=== PATIENT | female | born 1990 | race Caucasian/White ===

== ENCOUNTER 2016-08-16 15:13 | Emergency (ER) | payer BC, OTHER ==
--- NOTE | 2016-08-16 18:02 | ED CLINICAL REPORT ---
Clinical Report - Physicians/Mid Levels [facility] [address] [place] [address] 08/16/2016 15:17 Patient: ZAYRA BURK Time Seen: 15:30; upon arrival, initial patient contact, initial documentation, patient care assumed. Arrived- By private vehicle. Historian- patient. HISTORY OF PRESENT ILLNESS Chief Complaint: ABDOMINAL PAIN. At its maximum, severity described as severe. When seen in the E.D., severity described as severe. It is described as "pain". No radiation. It is described as located in the right lower quadrant. This started about 1 months ago and is still present and now worse. (today). It was abrupt in onset. The patient has had nausea and vomiting. The vomiting has occurred twice. No loss of appetite or diarrhea. No additional abdominal pain. No recent travel. Similar symptoms previously: Frequently, milder. Recent medical care: Not recently seen/assessed. REVIEW OF SYSTEMS Last normal menstrual period- now. No constipation, black stools, hematemesis, difficulty with urination or pain with urination. No urinary frequency, bloody stools, chest pain or difficulty breathing. Denies current . The patient has had a subjective fever. All systems otherwise negative, except as recorded above. PAST HISTORY See nurses notes. PROBLEMS: Fibromyalgia. Heartburn. --15:33 Prabha Huertas, RMarilynN. ADDITIONAL SURGERIES: Appendectomy. Cholecystectomy. Left shoulder. Right wrist. --15:33 Prabha Huertas, R.N. SOCIAL HISTORY Heavy tobacco smoker. Occasional alcohol use. No drug use. No recent travel. Is a local resident. FAMILY HISTORY Negative. ADDITIONAL NOTES The nursing notes have been reviewed with agreement regarding the chief complaint, HPI, ROS, PMH and patient medications and allergies. PHYSICAL EXAM Vital Signs: 08/16/2016 15:29 BP: 130/92. HR: 82. RR: 18. O2 saturation: 99%. Have been reviewed as normal and appear to be correct. Appearance: Alert. Oriented X3. No acute distress. Eyes: Pupils equal, round and reactive to light. Eyes normal inspection. Neck: Normal inspection. Neck supple. CVS: Normal heart rate and rhythm. Heart sounds normal. Pulses normal. Respiratory: No respiratory distress. Breath sounds normal. Chest nontender. Abdomen: Soft. Moderate tenderness in the right lower quadrant with rebound tenderness present. No guarding or Cunningham's, obturator or psoas sign present. Bowel sounds normal. No organomegaly. No mass. Tenderness present. Back: Normal inspection. Skin: Skin warm and dry. Normal skin color. No rash. Normal skin turgor. Extremities: Extremities exhibit normal ROM. No lower extremity edema. Neuro: Oriented X 3. No motor deficit. No sensory deficit. LABS, X-RAYS, AND EKG Abdominal CT: No acute disease. Laboratory Tests: UA-Culture if indicated: (KETURAH: 08/16/2016 15:27) ( Mscvd 08/16/2016 16:17) Final results Test Result Flag Units (Reference) URINE COLOR LIGHT YELLOW URINE APPEARANCE CLEAR URINE GLUCOSE NEGATIVE (NEGATIVE) URINE BILIRUBIN POSITIVE (NEGATIVE) URINE BILIRUBIN ICTOTEST POSITIVE (NEGATIVE) URINE KETONE NEGATIVE (NEGATIVE) URINE SPECIFIC GRAVITY 1.010 (1.010-1.030) URINE PH 6.0 (5.0-8.0) URINE PROTEIN NEGATIVE (NEGATIVE) URINE UROBILINOGEN 0.2 EU/dL (0.2-1.0) URINE NITRITE NEGATIVE (NEGATIVE) URINE BLOOD NEGATIVE (NEGATIVE) URINE LEUK ESTERASE NEGATIVE (NEGATIVE) URINE RBC NONE SEEN rbc/hpf (0-1) URINE WBC 0-1 wbc/hpf (0-1) URINE EPITHELIAL CELLS 3-5 EPI/hpf (0-5) URINE BACTERIA TRACE (<1+) (NONE SEEN) URINE COMMENT CULT NOT INDICATED URINE CULTURES ARE SET-UP BASED ON THE FOLLOWING CRITERIA:POSITIVE NITRITEPOSITIVE LEUKOCYTE ESTERASEGREATER THAN 10 WHITE BLOOD CELLSMODERATE (2+) OR GREATER BACTERIA Serum Qualitative: (KETURAH: 08/16/2016 15:44) ( MsgRcvd 08/16/2016 16:19) Final results Test Result Flag Units (Reference) , SERUM NEGATIVE CBC w Diff: (KETURAH: 08/16/2016 15:44) ( MsgRcvd 08/16/2016 16:17) Final results Test Result Flag Units (Reference) WHITE BLOOD COUNT 12.3 H K/uL (4.5-11.5) RED BLOOD COUNT 4.78 M/uL (4.00-5.20) HEMOGLOBIN 14.0 gm/dL (12.0-16.0) HEMATOCRIT 41.8 % (36.0-46.0) MEAN CELL VOLUME 87 fL (80-100) MEAN CORPUSCULAR HGB 29 pg (26-34) MEAN CORPUSCULAR HGB CONC 33 g/dL (31-37) RED CELL DISTRIBUTION WIDTH 13.8 % (11.6-14.8) PLATELET COUNT 307 K/uL (150-400) NEUTROPHIL % 65.0 % (50-75) LYMPH % 25.0 % (25-40) MONO % 4.2 % (3-14) EOSINOPHIL % 5.0 H % (0-4) BASOPHIL % 0.8 % (0-2) CMP: (KETURAH: 08/16/2016 15:44) ( MsgRcvd 08/16/2016 16:17) Final results Test Result Flag Units (Reference) GLUCOSE 103 mg/dL (70-110) BUN 6 L mg/dL (7-18) CREATININE 1.0 mg/dL (0.6-1.3) Estimated GFR >60 mL/min Estimated GFR- >60 mL/min Note: Persistent reduction over 3 months in eGFR<60 mL/min/1.73 m2 defines CKD. Patients with eGFR values>=60 mL/min/1.73 m2 may also have CKD if evidence ofpersistent proteinuria. Additional information may be foundat www.kidney.org. SODIUM 141 mmol/L (136-145) POTASSIUM 3.7 mmol/L (3.5-5.1) CHLORIDE 105 mmol/L (98-107) CARBON DIOXIDE 25 mmol/L (21-32) CALCIUM 8.9 mg/dL (8.5-10.1) TOTAL PROTEIN 7.2 g/dL (6.4-8.2) ALBUMIN 3.7 g/dL (3.3-5.0) BILIRUBIN, TOTAL 0.4 mg/dL (0.0-1.0) ALKALINE PHOSPHATASE 74 U/L (46-116) AST (SGOT) 12 L U/L (15-37) ALT (SGPT) 22 U/L (12-78) LIPASE 69 L U/L (73-393) AMYLASE 34 U/L (25-115) . PROGRESS AND PROCEDURES Course of Care: 16:59 08/16/16. lab results and tx plan discussed, agreed to do ct and give more pain meds 1757. upon discussing ct results, pt got tearful, and started to cry stating, she is so frustrated and tired of hurting, the pain feels like a tube or ovary issue and feels same as when she had her appendix out, but gyne told her that her female organs were normal and the pain must be muscular, pt did admit the pain meds we gave her helped and she did feel better, but she was hoping for more answers. Patient counseled in person regarding the patient's stable condition, test results and diagnosis. 17:58. Differential Diagnosis: I considered gastritis, gastroenteritis, peptic ulcer disease, gastroesophageal reflux disease, mesenteric lymphadenitis, colon cancer, adhesions, obstipation, biliary colic, cholecystitis, cholelithiasis, hepatitis, pancreatitis, urinary tract infection, ureterolithiasis, ovarian cyst, ovarian torsion, , ectopic , pelvic inflammatory disease, pelvic abscess, endometriosis and viral syndrome as a possible cause of abdominal pain in this patient. This is a partial list of diagnoses considered. Above considerations are based on history, physical exam and laboratory data. Differential diagnosis was discussed with patient. Disposition: Discharged home in good and improved condition (18:02). Condition: good and stable. CLINICAL IMPRESSION Acute right lower quadrant abdominal pain of unknown cause. INSTRUCTIONS Warnings: GENERAL WARNINGS: Return or contact your physician immediately if your condition worsens or changes unexpectedly, if not improving as expected, or if other problems arise. SPECIFICALLY, return if you develop fever, the inability to keep fluids down, blood in vomitus, blood in diarrhea, fainting or lightheadedness. Prescription Medications: Zofran 4 mg: Take 1 orally every six hours as needed for nausea/vomiting. Dispense ten (10). No refills. Substitution is permissible. Ultram 50 mg tablets: take 1-2 orally every 6 hours as needed for pain. Dispense twenty (20). No refills. Substitution is permissible. Follow-up: Follow up with your doctor in two days even if well. Summary of care provided to patient. Understanding of the discharge instructions verbalized by patient. (Electronically signed by Ligia Woo A.R.N.P. 08/16/2016 23:03)
--- NOTE | 2016-08-16 18:02 | ED ORDER SUMMARY ---
..... Patient: ZAYRA BURK OrderSheet [facility] VisitID: [id number] [place], [place] [id number] 26y, F Registration Date/Time: 08/16/2016 ORDER SHEET Weight: 62.5 kg (stated) Allergies: Latex, Penicillins GENERAL ORDERS: CBC w Diff Urgent (15:37 08/16/2016 HBivens A.R.N.P.) (Ack 15:48 RKaruga) (15:59 LSullivan R.N.) CMP Urgent (15:37 08/16/2016 HBivens A.R.N.P.) (Ack 15:48 RKaruga) (15:59 LSullivan R.N.) UA-Culture if indicated Urgent (15:37 08/16/2016 HBivens A.R.N.P.) (Ack 15:48 RKaruga) (15:59 LSullivan R.N.) Amylase Urgent (15:37 08/16/2016 HBivens A.R.N.P.) (Ack 15:48 RKaruga) (15:59 LSullivan R.N.) Lipase Urgent (15:37 08/16/2016 HBivens A.R.N.P.) (Ack 15:48 RKaruga) (15:59 LSullivan R.N.) Serum Qualitative Urgent (15:37 08/16/2016 HBivens A.R.N.P.) (Ack 15:48 RKaruga) (15:59 LSullivan R.N.) CT Abd/Pel w Cont (No) (normal) Urgent (17:00 08/16/2016 HBivens A.R.N.P.) (Ack 17:26 RKaruga) (17:50 LSullivan R.N.) MEDICATION ORDERS: IV FLUIDS: Toradol IV 30 mg (NOW) (15:36 08/16/2016 HBivens A.R.N.P.) (15:59 LSullivan R.N.) Zofran IV 4 mg (NOW) (15:37 08/16/2016 HBivens A.R.N.P.) (15:59 LSullivan R.N.) IV Saline Lock (15:37 08/16/2016 HBivens A.R.N.P.) (15:47 LSullivan R.N.) Dilaudid IV 1 mg (HIGH ALERT MEDICATION, NOW) (17:00 08/16/2016 HBivens A.R.N.P.) (17:18 LSullivan R.N.) ORDER SHEET NOTES: [Electronically signed by Ligia Woo.R.N.P. (23:03 08/16/2016)] [Electronically signed by Prabha Huertas R.N. (19:21 08/17/2016)] [Electronically locked/signed by Prabha Huertas R.N. (19:21 08/17/2016)]
--- NOTE | 2016-08-16 18:02 | ED NURSING NOTES ---
Clinical Report - Nurses [facility] [place] [address] 08/16/2016 15:17 Patient: ZAYRA BURK TRIAGE Triage time 15:30. Acuity: LEVEL 3. Chief Complaint: ABDOMINAL PAIN and (RLQ abdominal pain increased today, but has been going on for over a month). Alert. --15:36 Prabha Huertas R.N. 15:29 08/16/16. BP: 130/92. HR: 82. RR: 18. O2 saturation: 99%. --15:36 Prabha Huertas R.N. 15:46 08/16/16. Temp: 98.2 F. Pain level now: 01/09. --15:47 Prabha Huertas R.N. Weight: 62.5 kg stated. Height/Length: 59 inches Per Patient. BMI: 27.9. --15:36 Prabha Huertas R.N. Medications Hydrocodone-Acetaminophen Oral. Omeprazole Oral. --15:31 Prabha Huertas R.N. Zofran Oral. --15:31 Prabha Huertas R.N. Allergies Latex. Penicillins. --15:32 Prabha Huertas R.N. History Historian: patient. Accompanied by mother (dropped her off). Primary physician (Rosalinda). This started today. 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 PAST MEDICAL HX: Last normal menstrual period now. Denies current . SOCIAL HX: Heavy tobacco smoker- 1 pack per day. Occasional alcohol use. No drug use. FALL RISK ASSESSMENT: Fall risk assessment completed. No fall risk identified. ABUSE ASSESSMENT: Abuse assessment: ("yes") The patient was asked "Do you feel safe in your home?". --15:36 Prabha Huertas R.N. PAST MEDICAL HX: Immunizations: up-to-date. --15:36 Prabha Huertas R.N. PROBLEMS: Fibromyalgia. Heartburn. --15:33 Prabha Huertas R.N. ADDITIONAL SURGERIES: Appendectomy. Cholecystectomy. Left shoulder. Right wrist. --15:33 Prabha Huertas R.N. Interventions ID band on patient. To room. --15:36 Prabha Huertas R.N. PHYSICAL ASSESSMENT 15:37 08/16/16. GENERAL / NEURO / PSYCH: Alert. Oriented X 4. Appears in pain and anxious. RESPIRATORY: Respirations not labored. --15:37 Prabha Huertas R.N. NURSING PROGRESS NOTES 15:37 08/16/16. Patient identifiers checked. Call light placed in reach. Bed placed in lowest position. Patient ready for evaluation- chart flagged. --15:37 Prabha Huertas R.N. 15:37 08/16/16. ( MAILROOM ASSISTANT in room). --15:37 Prabha Huertas R.N. 15:47 08/16/2016 Site #1 started via IV in the right hand with an 20g angiocath, with aseptic technique and good blood return; one attempt. Blood drawn: rainbow set. Labeled in the presence of the patient and sent to the lab. Saline lock flushed with 10 mL saline. --15:47 Prabha Huertas R.N. 15:54 08/16/2016 Zofran (Ondansetron HCl) IVP 4 mg given over 2 minute(s) via site #1. Allergies verified and confirmed 5 rights. --15:59 Prabha Huertas R.N. 15:59 08/16/2016 Toradol IVP 30 mg given over 2 minute(s) via site #1. Allergies verified and confirmed 5 rights. --15:59 Prabha Huertas R.N. 17:18 08/16/2016 Dilaudid (HYDROmorphone HCl PF) IVP 1 mg given. via site #1. Allergies verified, confirmed 5 rights and sedative warning given. IV flushed thoroughly pre- and post-medication administration. --17:19 Prabha Huertas R.N. 17:25 08/16/2016 Site #2 started via IV in the right antecubital space with an 20g angiocath, with aseptic technique and good blood return; one attempt. Saline lock flushed with 10 mL saline. --17:25 Prabha Huertas R.N. 17:50 08/16/16. Patient returned from CT by stretcher with tech. --17:50 Prabha Huertas R.N. 18:00 08/16/2016 Dilaudid IVP Response: pain is gone now. Symptoms have improved the patient feels better. --19:20 Prabha Huertas R.N. 18:02 08/16/2016 Site #1 removed upon discharge. Bandage applied. --19:18 Prabha Huertas R.N. 18:02 08/16/2016 Site #2 removed upon discharge. Catheter intact. Bandage applied. --19:19 Prbaha Huertas R.N. DISPOSITION / DISCHARGE 18:02 08/16/16. Departure time: 1802. Condition at departure: unchanged. ( Vitals were taken and stable, chart already in medical records.). No learning barriers present. Discharge instructions provided and reviewed with the patient. Reviewed medication(s) information. Prescription(s) given to the patient. Reviewed referral to family practice for followup. Verbalized understanding. Written instructions provided. The patient was discharged home. She left the Emergency Department ambulatory and via private vehicle. Parent driving. FALL RISK ASSESSMENT: Fall risk assessment completed. No fall risk identified. --19:17 Prabha Huertas R.N. Locked/Released at 08/17/2016 19:21 by Prabha Huertas R.N.
--- NOTE | 2016-08-16 18:02 | ED ORDER SUMMARY ---
..... Patient: ZAYRA BURK OrderSheet [facility] VisitID: [id number] [place], [place] [id number] 26y, F Registration Date/Time: 08/16/2016 ORDER SHEET Weight: 62.5 kg (stated) Allergies: Latex, Penicillins GENERAL ORDERS: CBC w Diff Urgent (15:37 08/16/2016 HBivens A.R.N.P.) (Ack 15:48 RKaruga) (15:59 LSullivan R.N.) CMP Urgent (15:37 08/16/2016 HBivens A.R.N.P.) (Ack 15:48 RKaruga) (15:59 LSullivan R.N.) UA-Culture if indicated Urgent (15:37 08/16/2016 HBivens A.R.N.P.) (Ack 15:48 RKaruga) (15:59 LSullivan R.N.) Amylase Urgent (15:37 08/16/2016 HBivens A.R.N.P.) (Ack 15:48 RKaruga) (15:59 LSullivan R.N.) Lipase Urgent (15:37 08/16/2016 HBivens A.R.N.P.) (Ack 15:48 RKaruga) (15:59 LSullivan R.N.) Serum Qualitative Urgent (15:37 08/16/2016 HBivens A.R.N.P.) (Ack 15:48 RKaruga) (15:59 LSullivan R.N.) CT Abd/Pel w Cont (No) (normal) Urgent (17:00 08/16/2016 HBivens A.R.N.P.) (Ack 17:26 RKaruga) (17:50 LSullivan R.N.) MEDICATION ORDERS: IV FLUIDS: Toradol IV 30 mg (NOW) (15:36 08/16/2016 HBivens A.R.N.P.) (15:59 LSullivan R.N.) Zofran IV 4 mg (NOW) (15:37 08/16/2016 HBivens A.R.N.P.) (15:59 LSullivan R.N.) IV Saline Lock (15:37 08/16/2016 HBivens A.R.N.P.) (15:47 LSullivan R.N.) Dilaudid IV 1 mg (HIGH ALERT MEDICATION, NOW) (17:00 08/16/2016 HBivens A.R.N.P.) (17:18 LSullivan R.N.) ORDER SHEET NOTES: [Electronically signed by Ligia Woo.R.N.P. (23:03 08/16/2016)] [Electronically signed by Prabha Huertas R.N. (19:21 08/17/2016)] [Electronically locked/signed by Prabha Huertas R.N. (19:21 08/17/2016)]
--- NOTE | 2016-08-16 18:02 | ED NURSING NOTES ---
Clinical Report - Nurses [facility] [place] [address] 08/16/2016 15:17 Patient: ZAYRA BURK TRIAGE Triage time 15:30. Acuity: LEVEL 3. Chief Complaint: ABDOMINAL PAIN and (RLQ abdominal pain increased today, but has been going on for over a month). Alert. --15:36 Prabha Huertas R.N. 15:29 08/16/16. BP: 130/92. HR: 82. RR: 18. O2 saturation: 99%. --15:36 Prabha Huertas R.N. 15:46 08/16/16. Temp: 98.2 F. Pain level now: 01/09. --15:47 Prabha Huertas R.N. Weight: 62.5 kg stated. Height/Length: 59 inches Per Patient. BMI: 27.9. --15:36 Prabha Huertas R.N. Medications Hydrocodone-Acetaminophen Oral. Omeprazole Oral. --15:31 Prabha Huertas R.N. Zofran Oral. --15:31 Prabha Huertas R.N. Allergies Latex. Penicillins. --15:32 Prabha Huertas R.N. History Historian: patient. Accompanied by mother (dropped her off). Primary physician (Rosalinda). This started today. 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 PAST MEDICAL HX: Last normal menstrual period now. Denies current . SOCIAL HX: Heavy tobacco smoker- 1 pack per day. Occasional alcohol use. No drug use. FALL RISK ASSESSMENT: Fall risk assessment completed. No fall risk identified. ABUSE ASSESSMENT: Abuse assessment: ("yes") The patient was asked "Do you feel safe in your home?". --15:36 Prabha Huertas R.N. PAST MEDICAL HX: Immunizations: up-to-date. --15:36 Prabha Huertas R.N. PROBLEMS: Fibromyalgia. Heartburn. --15:33 Prabha Huertas R.N. ADDITIONAL SURGERIES: Appendectomy. Cholecystectomy. Left shoulder. Right wrist. --15:33 Prabha Huertas R.N. Interventions ID band on patient. To room. --15:36 Prabha Huertas R.N. PHYSICAL ASSESSMENT 15:37 08/16/16. GENERAL / NEURO / PSYCH: Alert. Oriented X 4. Appears in pain and anxious. RESPIRATORY: Respirations not labored. --15:37 Prabha Huertas R.N. NURSING PROGRESS NOTES 15:37 08/16/16. Patient identifiers checked. Call light placed in reach. Bed placed in lowest position. Patient ready for evaluation- chart flagged. --15:37 Prabha Huertas R.N. 15:37 08/16/16. ( ALTERATION WORKER in room). --15:37 Prabha Huertas R.N. 15:47 08/16/2016 Site #1 started via IV in the right hand with an 20g angiocath, with aseptic technique and good blood return; one attempt. Blood drawn: rainbow set. Labeled in the presence of the patient and sent to the lab. Saline lock flushed with 10 mL saline. --15:47 Prabha Huertas R.N. 15:54 08/16/2016 Zofran (Ondansetron HCl) IVP 4 mg given over 2 minute(s) via site #1. Allergies verified and confirmed 5 rights. --15:59 Prabha Huertas R.N. 15:59 08/16/2016 Toradol IVP 30 mg given over 2 minute(s) via site #1. Allergies verified and confirmed 5 rights. --15:59 Prabha Huertas R.N. 17:18 08/16/2016 Dilaudid (HYDROmorphone HCl PF) IVP 1 mg given. via site #1. Allergies verified, confirmed 5 rights and sedative warning given. IV flushed thoroughly pre- and post-medication administration. --17:19 Prabha Huertas R.N. 17:25 08/16/2016 Site #2 started via IV in the right antecubital space with an 20g angiocath, with aseptic technique and good blood return; one attempt. Saline lock flushed with 10 mL saline. --17:25 Prabha Huertas R.N. 17:50 08/16/16. Patient returned from CT by stretcher with tech. --17:50 Prabha Huertas R.N. 18:00 08/16/2016 Dilaudid IVP Response: pain is gone now. Symptoms have improved the patient feels better. --19:20 Prabha Huertas R.N. 18:02 08/16/2016 Site #1 removed upon discharge. Bandage applied. --19:18 Prabha Huertas R.N. 18:02 08/16/2016 Site #2 removed upon discharge. Catheter intact. Bandage applied. --19:19 Prabha Huertas R.N. DISPOSITION / DISCHARGE 18:02 08/16/16. Departure time: 1802. Condition at departure: unchanged. ( Vitals were taken and stable, chart already in medical records.). No learning barriers present. Discharge instructions provided and reviewed with the patient. Reviewed medication(s) information. Prescription(s) given to the patient. Reviewed referral to family practice for followup. Verbalized understanding. Written instructions provided. The patient was discharged home. She left the Emergency Department ambulatory and via private vehicle. Parent driving. FALL RISK ASSESSMENT: Fall risk assessment completed. No fall risk identified. --19:17 Prabha Huertas R.N. Locked/Released at 08/17/2016 19:21 by Prabha Huertas R.N.
--- NOTE | 2016-08-16 19:06 | DIAGNOSTIC IMAGING REPORT ---
PROCEDURE: ABDOMEN/PELVIS WITH CONTRAST CLINICAL INDICATION: ABDOMINAL PAIN TECHNIQUE: 125 ml of Isovue 300 were injected intravenously and axial images were obtained of the abdomen and pelvis with sagittal and coronal reformations. COMPARISON: None. FINDINGS: ABDOMEN: The gallbladder surgically absent and there is mild biliary dilatation. The liver, adrenal glands, spleen, pancreas, kidneys, retroperitoneal vessels and ureters are otherwise normal. Normal stomach, partially decompressed. Moderately increased amount of stool throughout the colon. Normal upper small bowel loops and mesentery. No suspicious mass. PELVIS: Surgically absent appendix. Normal uterus and ovaries. No free pelvic fluid or inflammation. Some of the small bowel loops contain a few air-fluid levels but are of normal caliber. The distal colon and rectum are decompressed. Normal urinary bladder and pelvic vessels. Intact osseous structures. IMPRESSION: 1. No acute process. 2. Moderately increased amount of colonic stool. 3. Post appendectomy and cholecystectomy. 4. Discussed with Ligia Woo in the emergency room. All CT scans at this facility use dose modulation, iterative reconstruction, and/or weight-based dosing when appropriate to reduce radiation dose to as low as reasonably achievable.
--- NOTE | 2016-08-17 19:21 | ED MAR SUMMARY ---
..... Medication Administration Record [facility] [address] [place] [address] Patient: ZAYRA BURK Visit ID: [id number] 26y, F Weight: 62.5 kg Height/Length: 59 in BMI: 27.9 ALLERGIES: Penicillins, Latex Given 15:54 08/16/2016 Prabha Huertas RHung Medication Administered: ZOFRAN [IVP] (ONDANSETRON HCL), Dose: 4 mg IVP over 2 minute(s), Site: #1 right hand. Medication Ordered: Zofran IV 4 mg (NOW). Given 15:59 08/16/2016 Prabha Huertas R.N. Medication Administered: TORADOL [IVP], Dose: 30 mg IVP over 2 minute(s), Site: #1 right hand. Medication Ordered: Toradol IV 30 mg (NOW). Given 17:18 08/16/2016 Prabha Huertas RMarilynN. Medication Administered: DILAUDID [IVP] (HYDROMORPHONE HCL PF), Dose: 1 mg IVP, Site: #1 right hand. Medication Ordered: Dilaudid IV 1 mg (HIGH ALERT MEDICATION, NOW).
--- NOTE | 2016-08-17 19:21 | ED MED RECONCILIATION SUMMARY ---
Patient: ZAYRA BURK Medication Reconciliation Report [facility] VisitID: [id number] [place] [address] 26y, F Registration Date/Time: 08/16/2016 Weight: 62.5 kg Height/Length: 59 in. BMI: 27.9 ALLERGIES: Latex, Penicillins The patient's Home Medications are listed below: THE FOLLOWING MEDICATIONS NEED TO BE RECONCILED: Hydrocodone-Acetaminophen Oral Omeprazole Oral Zofran Oral The source(s) of the original Home Medication information: Not obtained. The following Medications were given to the patient in the Emergency Department: Zofran [IVP] IVP 4 mg, administered: 08/16/2016 3:54:00 PM Toradol [IVP] IVP 30 mg, administered: 08/16/2016 3:59:00 PM Dilaudid [IVP] IVP 1 mg, administered: 08/16/2016 5:18:00 PM The following Medications were prescribed to the patient: Zofran 4 mg: Take 1 orally every six hours as needed for nausea/vomiting. Dispense ten (10). No refills. Substitution is permissible. -- Ligia Woo, Lori.R.N.P. Ultram 50 mg tablets: take 1-2 orally every 6 hours as needed for pain. Dispense twenty (20). No refills. Substitution is permissible. -- Ligia Woo, Lori.R.N.P.
--- NOTE | 2016-08-17 19:21 | ED MAR SUMMARY ---
..... Medication Administration Record [facility] [address] [place] [address] Patient: ZAYRA BURK Visit ID: [id number] 26y, F Weight: 62.5 kg Height/Length: 59 in BMI: 27.9 ALLERGIES: Penicillins, Latex Given 15:54 08/16/2016 Prabha Huertas RHung Medication Administered: ZOFRAN [IVP] (ONDANSETRON HCL), Dose: 4 mg IVP over 2 minute(s), Site: #1 right hand. Medication Ordered: Zofran IV 4 mg (NOW). Given 15:59 08/16/2016 Prabha Huertas R.N. Medication Administered: TORADOL [IVP], Dose: 30 mg IVP over 2 minute(s), Site: #1 right hand. Medication Ordered: Toradol IV 30 mg (NOW). Given 17:18 08/16/2016 Prabha Huertas RMarilynN. Medication Administered: DILAUDID [IVP] (HYDROMORPHONE HCL PF), Dose: 1 mg IVP, Site: #1 right hand. Medication Ordered: Dilaudid IV 1 mg (HIGH ALERT MEDICATION, NOW).
--- NOTE | 2016-08-17 19:21 | ED MED RECONCILIATION SUMMARY ---
Patient: ZAYRA BURK Medication Reconciliation Report [facility] VisitID: [id number] [place] [address] 26y, F Registration Date/Time: 08/16/2016 Weight: 62.5 kg Height/Length: 59 in. BMI: 27.9 ALLERGIES: Latex, Penicillins The patient's Home Medications are listed below: THE FOLLOWING MEDICATIONS NEED TO BE RECONCILED: Hydrocodone-Acetaminophen Oral Omeprazole Oral Zofran Oral The source(s) of the original Home Medication information: Not obtained. The following Medications were given to the patient in the Emergency Department: Zofran [IVP] IVP 4 mg, administered: 08/16/2016 3:54:00 PM Toradol [IVP] IVP 30 mg, administered: 08/16/2016 3:59:00 PM Dilaudid [IVP] IVP 1 mg, administered: 08/16/2016 5:18:00 PM The following Medications were prescribed to the patient: Zofran 4 mg: Take 1 orally every six hours as needed for nausea/vomiting. Dispense ten (10). No refills. Substitution is permissible. -- Ligia Woo, Lori.R.N.P. Ultram 50 mg tablets: take 1-2 orally every 6 hours as needed for pain. Dispense twenty (20). No refills. Substitution is permissible. -- Ligia Woo, Lori.R.N.P.
--- NOTE | 2016-08-17 19:21 | ED DISCHARGE INSTRUCTIONS ---
Patient: ZAYRA BURK General Instructions VisitID: [id number] [place] [address] 26y, F Registration Date/Time: 08/16/2016 Acute right lower quadrant abdominal pain of unknown cause. INSTRUCTIONS Warnings: GENERAL WARNINGS: Return or contact your physician immediately if your condition worsens or changes unexpectedly, if not improving as expected, or if other problems arise. SPECIFICALLY, return if you develop fever, the inability to keep fluids down, blood in vomitus, blood in diarrhea, fainting or lightheadedness. Prescription Medications: Zofran 4 mg: Take 1 orally every six hours as needed for nausea/vomiting. Dispense ten (10). No refills. Substitution is permissible. Ultram 50 mg tablets: take 1-2 orally every 6 hours as needed for pain. Dispense twenty (20). No refills. Substitution is permissible. Follow-up: Follow up with your doctor in two days even if well. Summary of care provided to patient. Understanding of the discharge instructions verbalized by patient. ADDITIONAL INFORMATION Abdominal Pain, Unknown Cause (Female) The exact cause of your abdominal (stomach) pain is not certain. This does not mean that this is something to worry about, or the right tests were not done. Everyone likes to know the exact cause of the problem, but sometimes with abdominal pain, there is no clear-cut cause, and this could be a good thing. The good news is that your symptoms can be treated, and you will feel better. Your condition does not seem serious now; however, sometimes the signs of a serious problem may take more time to appear. For this reason,it is important for you to watch for any new symptoms, problems,or worsening of your condition. Over the next few days, the abdominal pain may come and go, or be continuous. Other common symptoms can include nausea and vomiting. Sometimes it can be difficult to tell if you feel nauseous, you may just feel bad and not associate that feeling with nausea. Constipation, diarrhea, and a fever may go along with the pain. The pain may continue even if treated correctly over the following days. Depending on how things go, sometimes the cause can become clear and may require further or different treatment. Additional evaluations, medications, or tests may be needed. Home care Your health care provider may prescribe medications for pain, symptoms, or an infection. Follow the health care provider's instructions for taking these medications. General care Rest until your next exam. No strenuous activities. Try to find positions that ease discomfort. A small pillow placed on the abdomen may help relieve pain. Something warm on your abdomen (such as a heating pad) may help, but be careful not to burn yourself. Diet Do not force yourself to eat, especially if having cramps, vomiting, or diarrhea. Water is important so you do not get dehydrated. Soup may also be good. Sports drinks may also help, especially if they are not too acidic. Make sure you don't drink sugary drinks as this can make things worse. Take liquids in small amounts. Do not guzzle them. Caffeine sometimes makes the pain and cramping worse. Avoid dairy products if you have vomiting or diarrhea. Don't eat large amounts at a time. Wait a few minutes between bites. Eat a diet low in fiber (called a low-residue diet). Foods allowed include refined breads, white rice, fruit and vegetable juices without pulp, tender meats. These foods will pass more easily through the intestine. Avoid whole-grain foods, whole fruits and vegetables, meats, seeds and nuts, fried or fatty foods, dairy, alcohol and spicy foods until your symptoms go away. Follow-up care Follow up with your health care provider as instructed, or if your pain does not begin to improve in the next 24 hours. When to seek medical care Seek prompt medical care if any of the following occur: Pain gets worse or moves to the right lower abdomen New or worsening vomiting or diarrhea Swelling of the abdomen Unable to pass stool for more than three days Fever of 100.4F (38C) or higher, or as directed by your healthcare provider. Blood in vomit or bowel movements (dark red or black color) Jaundice (yellow color of eyes and skin) Weakness, dizziness Chest, arm, back, neck or jaw pain Unexpected vaginal bleeding or missed period Call 911 Call emergency services if any of the following occur: Trouble breathing Confusion Fainting or loss of consciousness Rapid heart rate Seizure Symptoms With Uncertain Cause [Adult] Based on the exam and any tests that were performed today, the exact cause of your symptoms is not certain. While your condition does not seem serious, the signs of a serious problem may take more time to appear. Therefore, it is important for you to watch for any new symptoms or worsening of your condition.Follow up with your doctor or this facility, as directed.A repeat physical exam or additional testing at a later time may uncover a cause for your symptoms that is not evident today. Home Care: Resume your usual activities and diet when this feels comfortable to do so. Follow Up with your doctor, or as advised by our staff.Contact your doctor sooner if your symptoms do not begin to improve in the next few days. [NOTE: If you had an x-ray, CT scan, ultrasound, or ECG (electrocardiogram), it will be reviewed by a specialist. You will be notified of any new findings that may affect your care.] Get Prompt Medical Attention if any of the following occur: Current symptoms get worse New symptoms appear Ondansetron Oral disintegrating tablet What is this medicine? ONDANSETRON (on CARIE se nicholas) is used to treat nausea and vomiting caused by chemotherapy. It is also used to prevent or treat nausea and vomiting after surgery. How should I use this medicine? These tablets are made to dissolve in the mouth. Do not try to push the tablet through the foil backing. With dry hands, peel away the foil backing and gently remove the tablet. Place the tablet in the mouth and allow it to dissolve, then swallow. While you may take these tablets with water, it is not necessary to do so. Talk to your manager chemistry regarding the use of this medicine in children. Special care may be needed. What side effects may I notice from receiving this medicine? Side effects that you should report to your doctor or health acute care certified nursing assistant as soon as possible: allergic reactions like skin rash, itching or hives, swelling of the face, lips, or tongue breathing problems dizziness fast or irregular heartbeat feeling faint or lightheaded, falls fever and chills swelling of the hands and feet tightness in the chest Side effects that usually do not require medical attention (report to your doctor or health acute care certified nursing assistant if they continue or are bothersome): constipation or diarrhea headache What may interact with this medicine? Do not take this medicine with any of the following medications: -apomorphine -cisapride -dofetilide -dronedarone -pimozide -thioridazine -ziprasidone This medicine may also interact with the following medications: -carbamazepine -phenytoin -rifampicin -tramadol -other medicines that prolong the QT interval (cause an abnormal heart rhythm) What if I miss a dose? If you miss a dose, take it as soon as you can. If it is almost time for your next dose, take only that dose. Do not take double or extra doses. Where should I keep my medicine? Keep out of the reach of children. Store between 2 and 30 degrees C (36 and 86 degrees F). Throw away any unused medicine after the expiration date. What should I tell my health care provider before I take this medicine? They need to know if you have any of these conditions: heart disease history of irregular heartbeat liver disease low levels of magnesium or potassium in the blood an unusual or allergic reaction to ondansetron, granisetron, other medicines, foods, dyes, or preservatives or trying to get breast-feeding What should I watch for while using this medicine? Check with your doctor or health acute care certified nursing assistant as soon as you can if you have any sign of an allergic reaction. Tramadol Hydrochloride Oral tablet What is this medicine? TRAMADOL (TRA ma dole) is a pain reliever. It is used to treat moderate to severe pain in adults. How should I use this medicine? Take this medicine by mouth with a full glass of water. Follow the directions on the prescription label. If the medicine upsets your stomach, take it with food or milk. Do not take more medicine than you are told to take. Talk to your manager chemistry regarding the use of this medicine in children. Special care may be needed. What side effects may I notice from receiving this medicine? Side effects that you should report to your doctor or health acute care certified nursing assistant as soon as possible: allergic reactions like skin rash, itching or hives, swelling of the face, lips, or tongue breathing difficulties, wheezing confusion itching light headedness or fainting spells redness, blistering, peeling or loosening of the skin, including inside the mouth seizures Side effects that usually do not require medical attention (report to your doctor or health acute care certified nursing assistant if they continue or are bothersome): constipation dizziness drowsiness headache nausea, vomiting What may interact with this medicine? Do not take this medicine with any of the following medications: MAOIs like Carbex, Eldepryl, Marplan, Nardil, and Parnate This medicine may also interact with the following medications: alcohol or medicines that contain alcohol antihistamines benzodiazepines bupropion carbamazepine or oxcarbazepine clozapine cyclobenzaprine digoxin furazolidone linezolid medicines for depression, anxiety, or psychotic disturbances medicines for migraine headache like almotriptan, eletriptan, frovatriptan, naratriptan, rizatriptan, sumatriptan, zolmitriptan medicines for pain like pentazocine, buprenorphine, butorphanol, meperidine, nalbuphine, and propoxyphene medicines for sleep muscle relaxants naltrexone phenobarbital phenothiazines like perphenazine, thioridazine, chlorpromazine, mesoridazine, fluphenazine, prochlorperazine, promazine, and trifluoperazine procarbazine warfarin What if I miss a dose? If you miss a dose, take it as soon as you can. If it is almost time for your next dose, take only that dose. Do not take double or extra doses. Where should I keep my medicine? Keep out of the reach of children. Store at room temperature between 15 and 30 degrees C (59 and 86 degrees F). Keep container tightly closed. Throw away any unused medicine after the expiration date. What should I tell my health care provider before I take this medicine? They need to know if you have any of these conditions: brain tumor depression drug abuse or addiction head injury if you frequently drink alcohol containing drinks kidney disease or trouble passing urine liver disease lung disease, asthma, or breathing problems seizures or epilepsy suicidal thoughts, plans, or attempt; a previous suicide attempt by you or a family member an unusual or allergic reaction to tramadol, codeine, other medicines, foods, dyes, or preservatives or trying to get breast-feeding What should I watch for while using this medicine? Tell your doctor or health acute care certified nursing assistant if your pain does not go away, if it gets worse, or if you have new or a different type of pain. You may develop tolerance to the medicine. Tolerance means that you will need a higher dose of the medicine for pain relief. Tolerance is normal and is expected if you take this medicine for a long time. Do not suddenly stop taking your medicine because you may develop a severe reaction. Your body becomes used to the medicine. This does NOT mean you are addicted. Addiction is a behavior related to getting and using a drug for a non-medical reason. If you have pain, you have a medical reason to take pain medicine. Your doctor will tell you how much medicine to take. If your doctor wants you to stop the medicine, the dose will be slowly lowered over time to avoid any side effects. You may get drowsy or dizzy. Do not drive, use machinery, or do anything that needs mental alertness until you know how this medicine affects you. Do not stand or sit up quickly, especially if you are an older patient. This reduces the risk of dizzy or fainting spells. Alcohol can increase or decrease the effects of this medicine. Avoid alcoholic drinks. You may have constipation. Try to have a bowel movement at least every 2 to 3 days. If you do not have a bowel movement for 3 days, call your doctor or health acute care certified nursing assistant. Your mouth may get dry. Chewing sugarless gum or sucking hard candy, and drinking plenty of water may help. Contact your doctor if the problem does not go away or is severe. You have been given the following additional information: Abdominal Pain, Unknown Cause, (Female) Symptoms With Uncertain Cause Ondansetron Oral disintegrating tablet Tramadol Hydrochloride Oral tablet (Electronically signed by Ligia Woo A.R.N.P. 08/16/2016 23:03)
== END 2016-08-16 18:41 | disposition home or self-care (01) ==
LOC: ED SRH 15:13
DX: R10.31 Right lower quadrant pain (principal); F17.200 Nicotine dependence, unspecified, uncomplicated; Z91.040 Latex allergy status; Z88.0 Allergy status to penicillin
CPT/HCPCS: 90004; 90100; 92235; 92530; 95059; 98428